=== PATIENT | female | born 1990 | race Caucasian/White ===

== ENCOUNTER 2017-10-21 14:31 | Emergency (ER) | payer MEDICAID, OTHER ==
[2017-10-21] MEDS: HYDROCODONE/APAP (5/325) TAB PO (16:22)
== END 2017-10-21 18:16 | disposition home or self-care (01) ==
LOC: FTE 14:31
DX: S09.90XA Unspecified injury of head, initial encounter (principal); R51 Headache; W22.8XXA Striking against or struck by other objects, initial encounter; Y92.9 Unspecified place or not applicable
CPT/HCPCS: 70450; 99284-25

== ENCOUNTER 2018-09-27 01:31 | Emergency (ER) | payer OTHER, MEDICAID ==
[2018-09-27 02:44] LABS: URINE BLOOD (Dip) POC Negative (NEGATIVE); URINE GLUCOSE (Dip) POC Negative (NEGATIVE); URINE KETONES (Dip) POC Negative (NEGATIVE); URINE LEUKOCYTE EST (Dip) POC Negative (NEGATIVE); URINE NITRITE (Dip) POC Negative (NEGATIVE); URINE TOTAL PROTEIN POC Negative (NEGATIVE)
[2018-09-27 02:54] LABS: ADD MAN DIFF? NO
[2018-09-27 02:56] LABS: BASOPHIL # 0.1 10^3/ul (0.0-0.1); BASOPHILS % 0.8 % (0.0-2.0); EOSINOPHILS # 0.3 10^3/ul (0.0-0.5); HEMATOCRIT 39.6 % (37.0-47.0); HEMOGLOBIN 13.2 g/dl (12.0-16.0); LYMPHOCYTES # 3.9 10^3/ul (0.8-2.9); LYMPHOCYTES % 43.3 % (15.0-51.0); MEAN CORPUSCULAR HEMOGLOBIN 30.2 pg (29.0-33.0); MEAN CORPUSCULAR HGB CONC 33.3 g/dl (32.0-37.0); MEAN CORPUSCULAR VOLUME 90.6 fl (82.0-101.0); MEAN PLATELET VOLUME 10.1 fl (7.4-10.4); MONOCYTE # 0.8 10^3/ul (0.3-0.9); MONOCYTES % 8.7 % (0.0-11.0); PLATELET COUNT 258 10^3/UL (140-415); RED BLOOD COUNT 4.37 10^6/ul (4.20-5.40)
[2018-09-27 02:56] LABS: WHITE BLOOD COUNT 9.1 10^3/ul (4.8-10.8)
[2018-09-27 03:11] LABS: INR 0.92; PROTIME 12.5 Sec (11.9-14.9)
[2018-09-27 03:12] LABS: ANION GAP 9 (5-13); BLOOD UREA NITROGEN 25 mg/dl (7-20); CALCIUM 9.4 mg/dl (8.4-10.2); CARBON DIOXIDE 28 mmol/L (21-31); CHLORIDE 102 mmol/L (97-110); Estimated GFR > 60 mL/min (>60); GLUCOSE 89 mg/dl (70-220); PARTIAL THROMBOPLASTIN TIME 29.7 Sec (23.0-35.0); POTASSIUM 3.8 mmol/L (3.5-5.1); SODIUM 139 mmol/L (135-144)
[2018-09-27 03:14] LABS: D-DIMER 284.89 ng/ml (<460)
[2018-09-27 03:23] LABS: TROPONIN-I < 0.012 ng/ml (0.000-0.120)
== END 2018-09-27 03:58 | disposition home or self-care (01) ==
LOC: E/R 01:31
DX: R06.02 Shortness of breath (principal)
CPT/HCPCS: 36415; 71045; 80048; 81003; 81025; 84484; 85025; 85378; 85610; 85730; 93005; 99285-25